=== PATIENT | female | born 1960 | race American Indian/Alaskan Native ===

== ENCOUNTER 2018-04-28 08:50 | Emergency (ER) | payer MEDICARE ==
[2018-04-28] MEDS ORDERED: BENADRYL PO ONE (10:38)
[2018-04-28] MEDS ORDERED: FUL-GLO OP ONE (10:39)
[2018-04-28] MEDS ORDERED: TETRACAINE 0.5% OU ONE (10:39)
--- NOTE | 2018-04-28 10:47 | Emergency Department Report ---
HPI - General Chief Complaint: Eye Problems Time Seen by Provider: 04/28/18 10:20 - HPI HPI: 57-year-old female presents to the emergency department from home with complaint of bilateral eye burning, tearing and irritation since taking a shower about one hour ago. She thinks that there may have been some reaction to her shampoo or hair dye chemicals. She also complains of some generalized itching. Patient also says that she is nauseated but also that she has not eaten or drank anything at this morning and that may be the problem. She has a past medical history of hypertension and diabetes. She has not taken anything for her symptoms prior to presentation. ED Past Medical Hx - Past Medical History Previous Medical History?: Yes Hx Hypertension: Yes Hx Diabetes: Yes (type 2) Hx Headaches / Migraines: Yes Hx Psychiatric Treatment: Yes (schizophrenia, bipolar) Additional medical history: medication non-compliance - Surgical History Past Surgical History?: Yes Additional Surgical History: right lumpectomy - Social History Smoking Status: Current Every Day Smoker Substance Use Type: None - Medications Home Medications: Home Medications Medication Instructions Recorded Confirmed Last Taken Type QUEtiapine [SEROquel] 200 mg PO QAM 02/18/15 07/03/15 07/03/15 History QUEtiapine [SEROquel] 200 mg PO QHS 02/18/15 07/03/15 07/03/15 History metFORMIN [Glucophage] 500 mg PO BID 02/18/15 07/03/15 07/03/15 History SUMAtriptan SUCCINATE [Imitrex] 6 mg SQ ONCE PRN #10 vial 06/27/15 07/03/15 Rx Valsartan/Hydrochlorothiazide 1 tab PO QDAY #30 tablet 07/04/15 Unknown Rx [Diovan Hct 160-25 mg] traMADol [Ultram 50 MG tab] 50 mg PO Q8HR PRN #20 tablet 07/04/15 Unknown Rx Tobramycin/Dexameth 0.3-0.1% 1 drops OU Q6H #1 bottle 04/28/18 Unknown Rx [Tobradex] ED Review of Systems ROS: Stated complaint: ALLERGIC REACTION Other details as noted in HPI Comment: All other systems reviewed and negative Constitutional: denies: chills, fever Eyes: eye pain, other (eye redness, tearing) ENT: denies: ear pain, throat pain Respiratory: denies: cough, shortness of breath, wheezing Cardiovascular: denies: chest pain, palpitations Gastrointestinal: nausea. denies: abdominal pain, vomiting Genitourinary: denies: urgency, dysuria, discharge Musculoskeletal: denies: back pain, joint swelling, arthralgia Skin: denies: rash, lesions Neurological: headache. denies: weakness, numbness Physical Exam - Physical Exam Vital Signs: Vital Signs 04/28/18 09:16 Temperature 98.4 F Pulse Rate 80 Respiratory 20 Rate Blood Pressure 166/107 O2 Sat by Pulse 98 Oximetry Physical Exam: GENERAL: The patient is well-developed well-nourished. HENT: Normocephalic. Atraumatic. Patient has moist mucous membranes. EYES: Extraocular motions are intact. Pupils equal reactive to light bilaterally. There is bilateral generalized conjunctivitis. There is some clear tearing. Visual acuity is 20/40 to each individual eye. There is no fluorescein uptake seen on Haider lamp NECK: Supple. Trachea is midline. CHEST/LUNGS: Clear to auscultation. There is no respiratory distress noted. HEART/CARDIOVASCULAR: Regular. There is no tachycardia. There is no murmur. ABDOMEN: Abdomen is soft, nontender. Patient has normal bowel sounds. Obese habitus. SKIN: Skin is warm and dry. NEURO: The patient is awake, alert, and oriented. The patient is cooperative. The patient has no focal neurologic deficits. The patient has normal speech. Normal gait appearance. Cranial nerves II-12 grossly intact. MUSCULOSKELETAL: There is no tenderness or deformity. There is no limitation range of motion. There is no evidence of acute injury. ED Course Vital Signs 04/28/18 09:16 Temperature 98.4 F Pulse Rate 80 Respiratory 20 Rate Blood Pressure 166/107 O2 Sat by Pulse 98 Oximetry ED Medical Decision Making - Medical Decision Making This patient presents with acute bilateral eye redness, tearing and a burning sensation since about one hour prior to presentation. On examination the patient does appear to have bilateral conjunctival injection and some clear tearing. She was given tetracaine and fluorescein staining and there was no signs of any corneal abrasion or fluorescein uptake with the Haider lamp. She was covered with some TobraDex drops. Patient also complained of some generalized itching for which she was given some Benadryl. To triage she may have complained of some dizziness but she had none of these complaints since I have seen her in the emergency department. The patient was seen ambulatory throughout the emergency department and did not appear unstable. I went to reassess the patient and the patient is asking for discharge home. She did not want any further workup but told me that she "feels fine." She was given a referral for ophthalmology check into her eye complaints. She was instructed to return to the emergency Department with any worsening of her symptoms, decreased vision, slurred speech, headache, dizziness, any neurological deficits or with any complaints/distress. - Differential Diagnosis allergic or chemical conjunctivitis, corneal abrasions Critical Care Time: No Critical care attestation.: If time is entered above; I have spent that time in minutes in the direct care of this critically ill patient, excluding procedure time. ED Disposition Clinical Impression: HTN (hypertension) Qualifiers: Hypertension type: essential hypertension Qualified Code(s): I10 - Essential ( primary) hypertension Conjunctivitis Qualifiers: Conjunctivitis type: acute Acute conjunctivitis type: unspecified Laterality: bilateral Qualified Code(s): H10.33 - Unspecified acute conjunctivitis, bilateral Disposition: DC TO HOME OR SELFCARE Is pt being admited?: No Condition: Stable Instructions: Conjunctivitis (ED), Hypertension (ED) Additional Instructions: Please follow up with her primary care physician in the next few days. I have given him a referral for a local business objects developer, Dr. Vargas, to follow up regarding your eye redness and burning. Please return to the emergency department immediately with any worsening of her symptoms, development of any severe headache, dizziness or feeling off balance, chest pain, or with any acute distress. Try and stay away from foods that are high in salt and caffeinated products to help with your blood pressure. Keep a blood pressure log. Prescriptions: Tobramycin/Dexameth 0.3-0.1% [Tobradex] 1 drops OU Q6H #1 bottle Referrals: PRIMARY CAREMD [Primary Care Provider] - ALEJANDRO SULLIVAN MD [Staff Physician] - BA[facility] Time of Disposition: 12:23
[2018-04-28] MEDS ORDERED: TOBRADEX OU ONE (11:38)
[2018-04-28 12:03] VITALS: BP 152/89
== END 2018-04-28 12:32 | disposition home or self-care (01) ==
LOC: ED 08:50
DX: H10.9 Unspecified conjunctivitis (principal); I10 Essential (primary) hypertension; E11.9 Type 2 diabetes mellitus without complications; G43.909 Migraine, unspecified, not intractable, without status migrainosus; F17.200 Nicotine dependence, unspecified, uncomplicated
CPT/HCPCS: 99283

== ENCOUNTER 2019-02-12 11:30 | Emergency (ER) | payer MEDICARE ==
--- NOTE | 2019-02-12 11:49 | Emergency Department Report ---
Blank Doc - Documentation Documentation: This is a 58-year-old female that presents with abdominal pain, HTN, SOB, and constipation. This initial assessment/diagnostic orders/clinical plan/treatment(s) is/are subject to change based on patient's health status, clinical progression and re- assessment by fellow clinical providers in the ED. Further treatment and workup at subsequent clinical providers discretion. Patient/guardians urged not to elope from the ED as their condition may be serious if not clinically assessed and managed. Initial orders include: 1- Patient sent to MAIN ED for further evaluation and treatment 2- labs 3- EKG 4- CXR/ABD xrays
[2019-02-12 12:20] LABS: Basophils % (Auto) 0.5 % (0.0-1.8); Eosinophils # (Auto) 0.1 K/mm3 (0.0-0.4); Eosinophils % (Auto) 1.7 % (0.0-4.3); Hematocrit 37.5 % (30.3-42.9); Hemoglobin 12.5 gm/dl (10.1-14.3); Lymphocytes # (Auto) 2.1 K/mm3 (1.2-5.4); Lymphocytes % (Auto) 24.2 % (13.4-35.0); Mean Corpuscular HGB Conc 33 % (30-34); Mean Corpuscular Volume 92 fl (79-97); Monocytes # (Auto) 0.5 K/mm3 (0.0-0.8); Platelet Count 326 K/mm3 (140-440); Red Blood Count 4.06 M/mm3 (3.65-5.03)
--- NOTE | 2019-02-12 12:33 | Emergency Department Report ---
ED General Adult HPI - General Chief complaint: Dyspnea/Respdistress Stated complaint: SOB/SWOLLEN ABD Time Seen by Provider: 02/12/19 11:48 Source: patient Mode of arrival: Ambulatory Limitations: No Limitations - History of Present Illness Initial comments: Mrs. Langston is a 58-year-old female with history of diabetes mellitus, migraine headaches, hypertension, schizophrenia, bipolar disorder who presents with headache, shortness of breath and constipation. Symptoms began 2 weeks ago. Headache is typical of previous migraine headaches. Mild in severity. Diffuse abdominal pain without any localized discrete area. Shortness of breath nonspecific without change with exertion or inspiration. Recently diagnosed with pneumonia. +tobacco abuse -: Gradual, week(s) (2) Location: head, abdomen Severity scale (0 -10): 5 Quality: aching Consistency: constant Improves with: none Worsens with: none Associated Symptoms: shortness of breath - Related Data Home Medications Medication Instructions Recorded Confirmed Last Taken QUEtiapine [SEROquel] 200 mg PO QAM 02/18/15 07/03/15 07/03/15 QUEtiapine [SEROquel] 200 mg PO QHS 02/18/15 07/03/15 07/03/15 metFORMIN [Glucophage] 500 mg PO BID 02/18/15 07/03/15 07/03/15 Previous Rx's Medication Instructions Recorded Last Taken Type SUMAtriptan SUCCINATE [Imitrex] 6 mg SQ ONCE PRN #10 vial 06/27/15 07/03/15 Rx Valsartan/Hydrochlorothiazide 1 tab PO QDAY #30 tablet 07/04/15 Unknown Rx [Diovan Hct 160-25 mg] traMADol [Ultram 50 MG tab] 50 mg PO Q8HR PRN #20 tablet 07/04/15 Unknown Rx Tobramycin/Dexameth 0.3-0.1% 1 drops OU Q6H #1 bottle 04/28/18 Unknown Rx [Tobradex] ALBUTEROL Inhaler (OR & NICU) 2 puff IH QID PRN #1 device 02/12/19 Unknown Rx [ProAir HFA Inhaler] Magnesium Citrate [Citrate of 300 ml PO ONCE #1 bottle 02/12/19 Unknown Rx Magnesia] Prednisone [predniSONE 10 mg 10 mg PO .TAPER #1 tab.ds.pk 02/12/19 Unknown Rx (6-Day Pack, 21 Tabs)] Allergies Allergy/AdvReac Type Severity Reaction Status Date / Time No Known Allergies Allergy Verified 06/27/15 12:10 ED Review of Systems ROS: Stated complaint: SOB/SWOLLEN ABD Other details as noted in HPI Comment: All other systems reviewed and negative Constitutional: denies: fever, malaise Respiratory: shortness of breath Gastrointestinal: abdominal pain Neurological: headache ED Past Medical Hx - Past Medical History Previous Medical History?: Yes Hx Hypertension: Yes Hx Diabetes: Yes (type 2) Hx Headaches / Migraines: Yes Hx Psychiatric Treatment: Yes (schizophrenia, bipolar) Additional medical history: medication non-compliance - Surgical History Past Surgical History?: Yes Additional Surgical History: right lumpectomy - Social History Smoking Status: Current Every Day Smoker Substance Use Type: None - Medications Home Medications: Home Medications Medication Instructions Recorded Confirmed Last Taken Type QUEtiapine [SEROquel] 200 mg PO QAM 02/18/15 07/03/15 07/03/15 History QUEtiapine [SEROquel] 200 mg PO QHS 02/18/15 07/03/15 07/03/15 History metFORMIN [Glucophage] 500 mg PO BID 02/18/15 07/03/15 07/03/15 History SUMAtriptan SUCCINATE [Imitrex] 6 mg SQ ONCE PRN #10 vial 06/27/15 07/03/15 07/03/15 Rx Valsartan/Hydrochlorothiazide 1 tab PO QDAY #30 tablet 07/04/15 Unknown Rx [Diovan Hct 160-25 mg] traMADol [Ultram 50 MG tab] 50 mg PO Q8HR PRN #20 tablet 07/04/15 Unknown Rx Tobramycin/Dexameth 0.3-0.1% 1 drops OU Q6H #1 bottle 04/28/18 Unknown Rx [Tobradex] ALBUTEROL Inhaler (OR & NICU) 2 puff IH QID PRN #1 device 02/12/19 Unknown Rx [ProAir HFA Inhaler] Magnesium Citrate [Citrate of 300 ml PO ONCE #1 bottle 02/12/19 Unknown Rx Magnesia] Prednisone [predniSONE 10 mg 10 mg PO .TAPER #1 tab.ds.pk 02/12/19 Unknown Rx (6-Day Pack, 21 Tabs)] ED Physical Exam - General Limitations: No Limitations General appearance: alert, in no apparent distress - Head Head exam: Present: atraumatic, normocephalic - Eye Eye exam: Present: normal appearance - ENT ENT exam: Present: mucous membranes moist - Neck Neck exam: Present: normal inspection, full ROM. Absent: tenderness, meningismus - Respiratory Respiratory exam: Present: normal lung sounds bilaterally. Absent: respiratory distress, wheezes, rales, rhonchi - Cardiovascular Cardiovascular Exam: Present: regular rate, normal rhythm, normal heart sounds. Absent: systolic murmur, diastolic murmur, rubs, gallop - GI/Abdominal GI/Abdominal exam: Present: soft, normal bowel sounds. Absent: distended, tenderness, guarding, rebound - Extremities Exam Extremities exam: Present: normal inspection - Back Exam Back exam: Present: normal inspection - Neurological Exam Neurological exam: Present: alert, oriented X3 - Psychiatric Psychiatric exam: Present: normal affect, normal mood - Skin Skin exam: Present: warm, dry, intact, normal color. Absent: rash ED Course Vital Signs 02/12/19 02/12/19 02/12/19 11:49 12:53 12:57 Temperature 97.7 F 98.6 F Pulse Rate 68 67 Pulse Rate [ Anterior Bilateral] Respiratory 16 16 16 Rate Respiratory Rate [Anterior Bilateral] Blood Pressure 187/95 Blood Pressure 171/81 [Left] O2 Sat by Pulse 97 98 98 Oximetry 02/12/19 13:19 Temperature Pulse Rate Pulse Rate [ 64 Anterior Bilateral] Respiratory Rate Respiratory 10 L Rate [Anterior Bilateral] Blood Pressure Blood Pressure [Left] O2 Sat by Pulse Oximetry ED Medical Decision Making - Lab Data Result diagrams: 02/12/19 11:58 02/12/19 11:58 - Radiology Data Radiology results: report reviewed Chest x-ray KUB: No acute process according to radiology report no PNA - Medical Decision Making 1. Migraine headache typical for patient given medication here in the ED 2. Dyspnea without indication of PE pneumonia or congestive heart failure. Unclear etiology. Does not appear to be an emergent cause according to today's presentation. possible acute or chronic bronchitis, rx: albuterol MDI, prednisone 3. Constipation rx: magnesium citrate Critical care attestation.: If time is entered above; I have spent that time in minutes in the direct care of this critically ill patient, excluding procedure time. ED Disposition Clinical Impression: Migraine headache, Constipation, Dyspnea, Acute bronchitis Disposition: - TO HOME OR SELFCARE Is pt being admited?: No Does the pt Need Aspirin: No Condition: Stable Instructions: Constipation (ED), Acute Bronchitis (ED) Prescriptions: Magnesium Citrate [Citrate of Magnesia] 300 ml PO ONCE #1 bottle Prednisone [predniSONE 10 mg (6-Day Pack, 21 Tabs)] 10 mg PO .TAPER #1 tab.ds.pk ALBUTEROL Inhaler (OR & NICU) [ProAir HFA Inhaler] 2 puff IH QID PRN #1 device PRN Reason: Shortness Of Breath Referrals: [facility] [Outside] - 3-5 Days
[2019-02-12 12:34] LABS: INR 1.02 (0.87-1.13)
[2019-02-12 12:35] LABS: Partial Thromboplastin Time 30.5 Sec. (24.2-36.6)
[2019-02-12 12:44] LABS: Alanine Aminotransferase 20 units/L (7-56); Albumin 3.3 g/dL (3.9-5); BUN/Creatinine Ratio 25; Blood Urea Nitrogen 15 mg/dL (7-17); Calcium 8.7 mg/dL (8.4-10.2); Hemolysis Index 4
--- NOTE | 2019-02-12 12:53 | XRay Report ---
Abdominal series with PA chest INDICATION / CLINICAL INFORMATION: sob/abdominal pain. COMPARISON: None available. FINDINGS: CHEST X-RAY: There is mild cardiomegaly. There is no acute pulmonary parenchymal or pleural abnormali ty. TUBES / LINES: None. BOWEL GAS PATTERN: No significant abnormality. FREE AIR / EXTRALUMINAL GAS: None identified on this supine exam (which is not sensitive for free air ). ADDITIONAL FINDINGS: No significant additional findings. IMPRESSION: 1. No acute findings. 2. Mild cardiomegaly. Signer Name: Jethro Haas MD Signed: 02/12/2019 11:48 AM Workstation Name: [id number]
[2019-02-12] MEDS ORDERED: DUONEB *Not for PRN Use IH ONE (12:55)
[2019-02-12] MEDS ORDERED: DELTASONE PO ONE (12:55)
[2019-02-12] MEDS ORDERED: DIOVAN PO ONE (13:31)
[2019-02-12] MEDS ORDERED: HCTZ PO ONE (13:31)
[2019-02-12] MEDS ORDERED: CEPHULAC PO ONE (14:19)
[2019-02-12 14:44] VITALS: BP 149/97
[2019-02-12 14:44] LABS: Bacteria,Urine 1+ /HPF (Negative); Bilirubin,Urine NEG (Negative); Blood,Urine SM (Negative); Mucus,Urine 2+ /HPF; Urobilinogen,Urine < 2.0 mg/dL (<2.0)
[2019-02-12 14:45] LABS: Color,Urine Yellow (Yellow)
== END 2019-02-12 14:44 | disposition home or self-care (01) ==
LOC: ED 11:30
DX: G43.909 Migraine, unspecified, not intractable, without status migrainosus (principal); K59.00 Constipation, unspecified; J20.9 Acute bronchitis, unspecified; I10 Essential (primary) hypertension; E11.9 Type 2 diabetes mellitus without complications; F20.9 Schizophrenia, unspecified; F31.9 Bipolar disorder, unspecified; F17.200 Nicotine dependence, unspecified, uncomplicated; Z79.899 Other long term (current) drug therapy
CPT/HCPCS: 36415; 74022; 80053; 81001; 84484; 85025; 85610; 85730; 94640; 99284; J7512

== ENCOUNTER 2019-02-15 12:15 | Inpatient (IN) | payer MEDICARE ==
--- NOTE | 2019-02-15 13:10 | Emergency Department Report ---
Blank Doc - Documentation Documentation: Patient reports headache chest pain abdomonnal anderson. Patient here with same c omplaints 2 days ago. Had labs , EKG ,and ct scan of abdominal/chest BM 2 days ago. Has a PCP in [place]. Reports copd on meds, sill smoking H?o HTN BP 209/109 H/O sleep apnea not on cpap EKG, labs Patient falling asleep during questioning Sent from [facility] for evaluation
[2019-02-15] MEDS ORDERED: PEPCID IV ONE (13:30)
[2019-02-15] MEDS ORDERED: CARAFATE PO ONE (13:30)
[2019-02-15] MEDS ORDERED: TYLENOL PO ONE (13:30)
--- NOTE | 2019-02-15 13:32 | Emergency Department Report ---
ED General Adult HPI - General Chief complaint: High BP Stated complaint: HIGH BLOOD PRESSURE Time Seen by Provider: 02/15/19 13:02 Source: patient Mode of arrival: Ambulatory Limitations: No Limitations - Related Data Home Medications Medication Instructions Recorded Confirmed Last Taken QUEtiapine [SEROquel] 200 mg PO QAM 02/18/15 07/03/15 07/03/15 QUEtiapine [SEROquel] 200 mg PO QHS 02/18/15 07/03/15 07/03/15 metFORMIN [Glucophage] 500 mg PO BID 02/18/15 07/03/15 07/03/15 Previous Rx's Medication Instructions Recorded Last Taken Type SUMAtriptan SUCCINATE [Imitrex] 6 mg SQ ONCE PRN #10 vial 06/27/15 07/03/15 Rx Valsartan/Hydrochlorothiazide 1 tab PO QDAY #30 tablet 07/04/15 Unknown Rx [Diovan Hct 160-25 mg] traMADol [Ultram 50 MG tab] 50 mg PO Q8HR PRN #20 tablet 07/04/15 Unknown Rx Tobramycin/Dexameth 0.3-0.1% 1 drops OU Q6H #1 bottle 04/28/18 Unknown Rx [Tobradex] ALBUTEROL Inhaler (OR & NICU) 2 puff IH QID PRN #1 device 02/12/19 Unknown Rx [ProAir HFA Inhaler] Magnesium Citrate [Citrate of 300 ml PO ONCE #1 bottle 02/12/19 Unknown Rx Magnesia] Prednisone [predniSONE 10 mg 10 mg PO .TAPER #1 tab.ds.pk 02/12/19 Unknown Rx (6-Day Pack, 21 Tabs)] Allergies Allergy/AdvReac Type Severity Reaction Status Date / Time No Known Allergies Allergy Verified 02/15/19 12:16 ED Review of Systems ROS: Stated complaint: HIGH BLOOD PRESSURE Other details as noted in HPI ED Past Medical Hx - Past Medical History Hx Hypertension: Yes Hx Diabetes: Yes (type 2) Hx Headaches / Migraines: Yes Hx Psychiatric Treatment: Yes (schizophrenia, bipolar) Additional medical history: medication non-compliance - Surgical History Additional Surgical History: right lumpectomy - Social History Smoking Status: Current Every Day Smoker Substance Use Type: None - Medications Home Medications: Home Medications Medication Instructions Recorded Confirmed Last Taken Type QUEtiapine [SEROquel] 200 mg PO QAM 02/18/15 07/03/15 07/03/15 History QUEtiapine [SEROquel] 200 mg PO QHS 02/18/15 07/03/15 07/03/15 History metFORMIN [Glucophage] 500 mg PO BID 02/18/15 07/03/15 07/03/15 History SUMAtriptan SUCCINATE [Imitrex] 6 mg SQ ONCE PRN #10 vial 06/27/15 07/03/15 07/03/15 Rx Valsartan/Hydrochlorothiazide 1 tab PO QDAY #30 tablet 07/04/15 Unknown Rx [Diovan Hct 160-25 mg] traMADol [Ultram 50 MG tab] 50 mg PO Q8HR PRN #20 tablet 07/04/15 Unknown Rx Tobramycin/Dexameth 0.3-0.1% 1 drops OU Q6H #1 bottle 04/28/18 Unknown Rx [Tobradex] ALBUTEROL Inhaler (OR & NICU) 2 puff IH QID PRN #1 device 02/12/19 Unknown Rx [ProAir HFA Inhaler] Magnesium Citrate [Citrate of 300 ml PO ONCE #1 bottle 02/12/19 Unknown Rx Magnesia] Prednisone [predniSONE 10 mg 10 mg PO .TAPER #1 tab.ds.pk 02/12/19 Unknown Rx (6-Day Pack, 21 Tabs)] ED Physical Exam - General Limitations: No Limitations ED Course Vital Signs 02/15/19 13:07 Temperature 97.6 F Pulse Rate 72 Respiratory 22 Rate Blood Pressure 209/107 O2 Sat by Pulse 98 Oximetry Critical care attestation.: If time is entered above; I have spent that time in minutes in the direct care of this critically ill patient, excluding procedure time. ED Disposition Condition: Stable
--- NOTE | 2019-02-15 13:47 | Emergency Department Report ---
ED Chest Pain HPI - General Chief Complaint: High BP Stated Complaint: HIGH BLOOD PRESSURE Time Seen by Provider: 02/15/19 13:02 Source: patient, RN notes reviewed, old records reviewed Mode of arrival: Ambulatory Limitations: No Limitations - History of Present Illness Initial Comments: This is a 58-year-old female. This patient is not known to this provider previously. Her past medical history includes morbid obesity, hypertension, diabetes. Patient may have a history of undiagnosed sleep apnea, patient reports that her indicates that she snores quite a bit at night. She also endorses daytime sleepiness. She endorses sensation that sleep does not feel refreshing. Was recently initiated on antihypertensive therapy. Patient presents to the ER today with multiple complaints. Her first complaint is nontraumatic subxiphoid chest pain. This pain is aching and throbbing, constant since last night, and radiates to the back. There is no vomiting or diaphoresis. No recent aspirin consumption. There is shortness of breath. This is chronic. There may be an exertional component, the patient endorses chronic shortness of breath. The patient denies DVT, pulmonary embolism risk factors. Secondary complaint is lower abdominal pain. It has been present for a few days. It is mostly suprapubic. It does not radiate anywhere. It does not have exacerbating or relieving factors. No irritative or obstructive urinary symptoms. Patient seen in this department a few days ago for similar symptoms, had unremarkable laboratory studies, an unremarkable x-ray of the chest, abdomen, pelvis. MD Complaint: chest pain, other -: Gradual, hour(s), days(s) Onset: during rest Pain Location: epigastric Pain Radiation: none Severity: moderate Quality: aching Consistency: constant Improves With: nothing Worsens With: nothing re: dyspnea Aspirin use within the Past 7 Days: (0) No - Related Data On Oral Contraceptives: No Home Medications Medication Instructions Recorded Confirmed Last Taken metFORMIN [Glucophage] 500 mg PO BID 02/18/15 02/15/19 07/03/15 ARIPiprazole [Abilify] 15 mg PO DAILY 02/15/19 02/15/19 Unknown Propranolol [Inderal] 10 mg PO TID 02/15/19 02/15/19 Unknown Valsartan [Diovan] 160 mg PO BID 02/15/19 02/15/19 Unknown carBAMazepine [Carbamazepine] 200 mg PO BID 02/15/19 02/15/19 Unknown Allergies Allergy/AdvReac Type Severity Reaction Status Date / Time No Known Allergies Allergy Verified 02/15/19 12:16 Heart Score - HEART Score History: Moderately suspicious EKG: Non-specific Age: 45-65 Risk factors: > 3 risk factors or hx of atherosclerotic disease Troponin: < normal limit HEART Score: 5 - Critical Actions Critical Actions: 4-6 pts:12-16.6% risk of adverse cardiac event. Should be admitted ED Review of Systems ROS: Stated complaint: HIGH BLOOD PRESSURE Other details as noted in HPI Constitutional: malaise. denies: fever Eyes: denies: eye discharge ENT: denies: epistaxis Respiratory: shortness of breath Cardiovascular: chest pain Gastrointestinal: abdominal pain, constipation Genitourinary: denies: dysuria Musculoskeletal: arthralgia Skin: denies: lesions Neurological: weakness Psychiatric: anxiety ED Past Medical Hx - Past Medical History Hx Hypertension: Yes Hx Diabetes: Yes (type 2) Hx Headaches / Migraines: Yes Hx Psychiatric Treatment: Yes (schizophrenia, bipolar) Additional medical history: medication non-compliance - Surgical History Additional Surgical History: right lumpectomy - Social History Smoking Status: Current Every Day Smoker Substance Use Type: None - Medications Home Medications: Home Medications Medication Instructions Recorded Confirmed Last Taken Type metFORMIN [Glucophage] 500 mg PO BID 02/18/15 02/15/19 07/03/15 History ARIPiprazole [Abilify] 15 mg PO DAILY 02/15/19 02/15/19 Unknown History Propranolol [Inderal] 10 mg PO TID 02/15/19 02/15/19 Unknown History Valsartan [Diovan] 160 mg PO BID 02/15/19 02/15/19 Unknown History carBAMazepine [Carbamazepine] 200 mg PO BID 02/15/19 02/15/19 Unknown History ED Physical Exam - General Limitations: No Limitations General appearance: alert, anxious, obese - Head Head exam: Present: atraumatic, normocephalic - Eye Eye exam: Present: normal appearance, EOMI. Absent: nystagmus - ENT ENT exam: Present: normal exam, normal orophraynx, mucous membranes moist, normal external ear exam - Neck Neck exam: Present: normal inspection, full ROM. Absent: tenderness, meningismus - Respiratory Respiratory exam: Present: normal lung sounds bilaterally, rales (focal rales noted in lowe lung salmon). Absent: respiratory distress - Cardiovascular Cardiovascular Exam: Present: regular rate, normal rhythm, normal heart sounds. Absent: bradycardia, tachycardia, irregular rhythm, systolic murmur, diastolic murmur, rubs, gallop - GI/Abdominal GI/Abdominal exam: Present: soft. Absent: distended, tenderness (there is minimal suprapubic tenderness. There is no rebound, guarding or peritoneal signs.), guarding, rebound, rigid, pulsatile mass - External exam: Present: normal external exam, other (chaperoned by nurse Blanche Santamaria) - Extremities Exam Extremities exam: Present: normal inspection, full ROM, pedal edema, other (2+ pulses noted in the bilateral upper, lower extremities. Compartments soft. No long bony tenderness. The pelvis is stable.). Absent: calf tenderness - Back Exam Back exam: Present: normal inspection, full ROM. Absent: tenderness, CVA tenderness (R), CVA tenderness (L), paraspinal tenderness, vertebral tenderness - Neurological Exam Neurological exam: Present: alert, oriented X3, other (Extraocular movements intact. Tongue midline. No facial droop. Facial sensation intact to light touch in the V1, V2, V3 distribution bilaterally. 5 and 5 strength in 4 extremities.. Sensation is intact to light touch in 4 extremities.). Absent: motor sensory deficit - Psychiatric Psychiatric exam: Present: anxious - Skin Skin exam: Present: warm, dry, intact, normal color. Absent: rash ED Course Vital Signs 02/15/19 02/15/19 02/15/19 13:07 15:28 15:29 Temperature 97.6 F Pulse Rate 72 79 79 Respiratory 22 16 Rate Blood Pressure 209/107 188/115 Blood Pressure 188/115 [Left] O2 Sat by Pulse 98 96 Oximetry - Reevaluation(s) Reevaluation #1: 02/15/19 13:45 Differential diagnosis, including but not limited to: GERD, gastritis, hiatal hernia, pneumonia, acute coronary syndrome, reflux, sleep apnea, constipation, obstruction, urinary tract infection Assessment and plan: 58-year-old female found to be hypertensive, also anxious, no pulmonary embolism or DVT risk factors, low risk by well's criteria, aortic disease unlikely, pulses equal in the upper and lower extremities bilaterally, x-ray of the chest unremarkable a few days ago, however, given morbid obesity, diabetes, hypertension, patient moderate risk for major adverse cardiac event as per the heart risk stratification tool. We will treat her symptoms. Blood pressure currently 170/80's. Shortness of breath is appreciated, patient endorses some orthopnea, has 3-4 cm of JVD, and minimal lower extremity edema, suspect right-sided heart dysfunction, likely secondary to pulmonary hypertension, and presumed undiagnosed obstructive sleep apnea. Explained to patient that she would need to lose weight, and improved diet and lifestyle. Screening laboratory studies pending. We will obtain noncontrast CT scan of the abdomen and pelvis, do not suspect acute etiology or pathology in the patient's abdomen/pelvis at this time. Pain medication will be given. 02/15/19 14:56 Reevaluation #2: 02/15/19 14:54 Laboratory studies show elevated BNP, in combination with JVD, shortness of breath, presumed undiagnosed obstructive sleep apnea, prominent pulmonary artery on x-ray of the chest, all suggestive of right-sided cardiac dysfunction, right-sided heart failure. CT scan of the chest ordered, additional medications ordered, case presented to Hospital physician, Dr. Neil Merchant, who has accepted the patient to the medical service. Reevaluation #3: 02/15/19 15:42 CT scan of the abdomen and pelvis is negative for acute disease. Dr Neil Merchant agrees to follow-up on CT scan of the chest Reevaluation #4: 02/15/19 15:42 Urinalysis reviewed and appreciated, likely asymptomatic bacteriuria. - EJ/Peripheral Line Neck R Time Out Performed: Yes Indications: nurses unable to establis Skin Cleansed in Sterile Fashion: Yes Size: 20 Dressing Placed: Tegaderm Patient Tolerated Procedure: well JM score - Jm Score Age > 65: (0) No Aspirin use within the Past 7 Days: (0) No 3 or more CAD Risk Factors: (1) Yes 2 or more Angina events in past 24 hrs: (0) No Known CAD with more than 50% Stenosis: (0) No Elevated Cardiac Markers: (0) No ST Deviation Greater than 0.5mm: (0) No JM Score: 1 ED Medical Decision Making - Lab Data Result diagrams: 02/15/19 13:34 02/15/19 13:34 Vital Signs 02/15/19 13:07 Temperature 97.6 F Pulse Rate 72 Respiratory 22 Rate Blood Pressure 209/107 O2 Sat by Pulse 98 Oximetry Vital Signs 02/15/19 13:07 Temperature 97.6 F Pulse Rate 72 Respiratory 22 Rate Blood Pressure 209/107 O2 Sat by Pulse 98 Oximetry Lab Results 02/15/19 02/15/19 02/15/19 Range/Units 13:34 13:34 13:34 WBC 10.9 (4.5-11.0) K/mm3 RBC 4.15 (3.65-5.03) M/mm3 Hgb 12.6 (10.1-14.3) gm/dl Hct 38.9 (30.3-42.9) % MCV 94 (79-97) fl MCH 30 (28-32) pg MCHC 32 (30-34) % RDW 15.1 (13.2-15.2) % Plt Count 350 (140-440) K/mm3 D-Dimer 254.95 H (0-234) ng/mlDDU Sodium 137 (137-145) mmol/L Potassium 4.3 (3.6-5.0) mmol/L Chloride 99.1 (98-107) mmol/L Carbon Dioxide 27 (22-30) mmol/L Anion Gap 15 mmol/L BUN 18 H (7-17) mg/dL Creatinine 0.6 L (0.7-1.2) mg/dL Estimated GFR > 60 ml/min BUN/Creatinine Ratio 30 % Glucose 278 H (65-100) mg/dL Calcium 9.1 (8.4-10.2) mg/dL Magnesium 1.90 (1.7-2.3) mg/dL Total Creatine Kinase 162 H (30-135) units/L Troponin T (0.00-0.029) ng/mL NT-Pro-B Natriuret Pep (0-900) pg/mL 02/15/19 02/15/19 Range/Units 13:34 13:34 WBC (4.5-11.0) K/mm3 RBC (3.65-5.03) M/mm3 Hgb (10.1-14.3) gm/dl Hct (30.3-42.9) % MCV (79-97) fl MCH (28-32) pg MCHC (30-34) % RDW (13.2-15.2) % Plt Count (140-440) K/mm3 D-Dimer (0-234) ng/mlDDU Sodium (137-145) mmol/L Potassium (3.6-5.0) mmol/L Chloride (98-107) mmol/L Carbon Dioxide (22-30) mmol/L Anion Gap mmol/L BUN (7-17) mg/dL Creatinine (0.7-1.2) mg/dL Estimated GFR ml/min BUN/Creatinine Ratio % Glucose (65-100) mg/dL Calcium (8.4-10.2) mg/dL Magnesium (1.7-2.3) mg/dL Total Creatine Kinase (30-135) units/L Troponin T < 0.010 (0.00-0.029) ng/mL NT-Pro-B Natriuret Pep 1883 H (0-900) pg/mL - EKG Data -: EKG Interpreted by Or EKG shows normal: sinus rhythm Rate: normal - EKG Data When compared to previous EKG there are: no significant change 02/15/19 13:47 This is a sinus rhythm, 70 bpm, left axis deviation, left anterior fascicular block, incomplete right bundle branch block, poor R-wave progression, this is an abnormal EKG, the EKG is not consistent with ST elevation myocardial infarct ion, appears to be grossly unchanged from prior EKG from 07/11/2015. - Radiology Data Radiology results: pending, report reviewed, image reviewed Print Report Referring Physician: LAKIA NICHOLE Patient Name: MADELINE MAY Date of : 1960 Sex: Female Report Date: 2019-02-12 Report Status: Finalized Findings [facility] [address] [place] [address] XRay Report Signed Patient: MADELINE MAY MR#: [id number] : 1960 Acct:[id number] Age/Sex: 58 / F ADM Date: 02/12/19 Loc: ED Attending Dr: Ordering Physician: LAKIA NICHOLE NP Date of Service: 02/12/19 Procedure(s): XR abd series w cxr 1V Accession Number(s): [id number] cc: LAKIA NICHOLE NP Fluoro Time In Minutes: Abdominal series with PA chest INDICATION / CLINICAL INFORMATION: sob/abdominal pain. COMPARISON: None available. FINDINGS: CHEST X-RAY: There is mild cardiomegaly. There is no acute pulmonary parenchymal or pleural abnormality. TUBES / LINES: None. BOWEL GAS PATTERN: No significant abnormality. FREE AIR / EXTRALUMINAL GAS: None identified on this supine exam (which is not sensitive for free air). ADDITIONAL FINDINGS: No significant additional findings. IMPRESSION: 1. No acute findings. 2. Mild cardiomegaly. Signer Name: Jethro Haas MD Signed: 02/12/2019 11:48 AM Workstation Name: [id number] Transcribed By: REF Dictated By: NHUNG LOPEZ MD Electronically Authenticated By: NHUNG LOPEZ MD Signed Date/Time: 02/12/19 1148 DD/ 1148 Print Report Referring Physician: JOEL LINARES Patient Name: MADELINE MAY Date of : 1960 Sex: Female Report Date: 2019-02-15 Report Status: Finalized Findings [facility] [address] [place] [address] XRay Report Signed Patient: MADEILNE MAY MR#: [id number] : 1960 Acct:[id number] Age/Sex: 58 / F ADM Date: 02/15/19 Loc: ED Attending Dr: Ordering Physician: JOEL LINARES MD Date of Service: 02/15/19 Procedure(s): XR chest routine 2V Accession Number(s): [id number] cc: JOEL LINARES MD Fluoro Time In Minutes: PA AND LATERAL CXR HISTORY: Chest pain for 2 weeks. COMPARISON: 02/12/2019 FINDINGS: Cardiomediastinal silhouette: Upper limits of normal. Normal mediastinal contours. Aortic tortuosity. Lungs: Normal expansion. Normal lung aeration. No pleural effusions. No pneumothorax. Pulmonary vascularity: Normal except for prominence of the right pulmonary artery and hilum. Support hardware: None. Additional findings: None. IMPRESSION: A prominent right hilum/pulmonary artery. Consider CTA chest to evaluate the pulmonary arteries. No CHF or pneumonia. Signer Name: Nhung Lopez MD Signed: 02/15/2019 2:00 PM Workstation Name: [id number] Transcribed By: REF Dictated By: NHUNG LOPEZ MD Electronically Authenticated By: NHUNG LOPEZ MD Signed Date/Time: 02/15/19 1400 Critical care attestation.: If time is entered above; I have spent that time in minutes in the direct care of this critically ill patient, excluding procedure time. ED Disposition Clinical Impression: Acute chest pain, Hypertensive urgency Right-sided heart failure Qualifiers: Heart failure chronicity: unspecified Qualified Code(s): I50.810 - Right heart failure, unspecified Disposition: DC-09 OP ADMIT IP TO THIS HOSP Is pt being admited?: Yes Does the pt Need Aspirin: Yes Condition: Stable Instructions: Chest Pain (ED) Referrals: AJAY CASTAÑEDA MD [Primary Care Provider] - 3-5 Days
[2019-02-15 13:48] LABS: Hematocrit 38.9 % (30.3-42.9); Hemoglobin 12.6 gm/dl (10.1-14.3); Mean Corpuscular HGB Conc 32 % (30-34); Mean Corpuscular Volume 94 fl (79-97); Platelet Count 350 K/mm3 (140-440); Red Blood Count 4.15 M/mm3 (3.65-5.03); Red Cell Distribution Width 15.1 % (13.2-15.2)
--- NOTE | 2019-02-15 14:05 | XRay Report ---
PA AND LATERAL CXR HISTORY: Chest pain for 2 weeks. COMPARISON: 02/12/2019 FINDINGS: Cardiomediastinal silhouette: Upper limits of normal. Normal mediastinal contours. Aortic tortuosity . Lungs: Normal expansion. Normal lung aeration. No pleural effusions. No pneumothorax. Pulmonary vascularity: Normal except for prominence of the right pulmonary artery and hilum. Support hardware: None. Additional findings: None. IMPRESSION: A prominent right hilum/pulmonary artery. Consider CTA chest to evaluate the pulmonary arteries. No C HF or pneumonia. Signer Name: Yemi Lopez MD Signed: 02/15/2019 2:00 PM Workstation Name: [id number]
[2019-02-15 14:09] LABS: BUN/Creatinine Ratio 30; Blood Urea Nitrogen 18 mg/dL (7-17); Calcium 9.1 mg/dL (8.4-10.2); Hemolysis Index 7
[2019-02-15] MEDS ORDERED: APRESOLINE IV ONE (14:51)
[2019-02-15] MEDS ORDERED: LASIX IV ONE (14:51)
[2019-02-15] MEDS ORDERED: NITROSTAT SL PRN (14:55)
[2019-02-15] MEDS ORDERED: BABY ASPIRIN PO ONE (14:56)
--- NOTE | 2019-02-15 15:01 | Cat Scan Report ---
CT ABDOMEN AND PELVIS WITHOUT CONTRAST HISTORY: Lower abdominal pain COMPARISON: CT of the abdomen on 07/03/2015. TECHNIQUE: Routine abdominal and pelvic CT exam performed without contrast. Lack of intravenous cont rast limits evaluation of the vascular and solid organs.. All CT scans at this location are performed using CT dose reduction for ALARA by means of automated exposure control. FINDINGS: CT ABDOMEN: Lung Bases: No significant abnormality. Liver: No significant abnormality. Biliary: No significant abnormality. Spleen: No significant abnormality. Unenlarged. Pancreas: No significant abnormality. Adrenals: There is a stable approximately 3 cm right adrenal adenoma, not requiring dedicated follow- up. Kidneys: No significant abnormality. Lymphatics: No lymphadenopathy. Vasculature: Atherosclerotic but nonaneurysmal abdominal aorta. Bowel/Peritoneum: Nonobstructive bowel. Sigmoid diverticulosis without mesocolonic fat stranding. No free air. No free fluid. Normal appendix. CT PELVIC: : No significant abnormality. Lymphatics: No lymphadenopathy. Osseous Structures: No aggressive appearing osseous lesions. Additional Findings: None IMPRESSION: 1. No acute findings or adverse change from the previous CT on 07/03/2015. Signer Name: Jethro Haas MD Signed: 02/15/2019 2:56 PM Workstation Name: [id number]
[2019-02-15 15:03] LABS: Bacteria,Urine 1+ /HPF (Negative); Bilirubin,Urine NEG (Negative); Blood,Urine MOD (Negative); Color,Urine Straw (Yellow); Mucus,Urine FEW /HPF; Urobilinogen,Urine < 2.0 mg/dL (<2.0)
--- NOTE | 2019-02-15 20:22 | History and Physical Report ---
History of Present Illness Date of examination: 02/15/19 History of present illness: This is a 58-year-old female. This patient is not known to this provider previously. Her past medical history includes morbid obesity, hypertension, diabetes. Patient may have a history of undiagnosed sleep apnea, patient reports that her indicates that she snores quite a bit at night. She also endorses daytime sleepiness. She endorses sensation that sleep does not feel refreshing. Was recently initiated on antihypertensive therapy. Patient presents to the ER today with multiple complaints. Her first complaint is nontraumatic subxiphoid chest pain. This pain is aching and throbbing, constant since last night, and radiates to the back. There is no vomiting or diaphoresis. No recent aspirin consumption. There is shortness of breath. This is chronic. There may be an exertional component, the patient endorses chronic shortness of breath. The patient denies DVT, pulmonary embolism risk factors. Secondary complaint is lower abdominal pain. It has been present for a few days. It is mostly suprapubic. It does not radiate anywhere. It does not have exacerbating or relieving factors. No irritative or obstructive urinary symptoms. Patient seen in this department a few days ago for similar symptoms, had unremarkable laboratory studies, an unremarkable x-ray of the chest, abdomen, pelvis. MD Complaint: chest pain, other -: Gradual, hour(s), days(s) Onset: during rest Pain Location: epigastric Pain Radiation: none Severity: moderate Quality: aching Consistency: constant Improves With: nothing Worsens With: nothing re: dyspnea Aspirin use within the Past 7 Days: (0) No - Related Data On Oral Contraceptives: No Home Medications Medication Instructions Recorded Confirmed Last Taken metFORMIN [Glucophage] 500 mg PO BID 02/18/15 02/15/19 07/03/15 ARIPiprazole [Abilify] 15 mg PO DAILY 02/15/19 02/15/19 Unknown Propranolol [Inderal] 10 mg PO TID 02/15/19 02/15/19 Unknown Valsartan [Diovan] 160 mg PO BID 02/15/19 02/15/19 Unknown carBAMazepine [Carbamazepine] 200 mg PO BID 02/15/19 02/15/19 Unknown Allergies Allergy/AdvReac Type Severity Reaction Status Date / Time No Known Allergies Allergy Verified 02/15/19 12:16 Heart Score - HEART Score History: Moderately suspicious EKG: Non-specific Age: 45-65 Risk factors: > 3 risk factors or hx of atherosclerotic disease Troponin: < normal limit HEART Score: 5 - Critical Actions Critical Actions: 4-6 pts:12-16.6% risk of adverse cardiac event. Should be admitted ED Review of Systems ROS: Stated complaint: HIGH BLOOD PRESSURE Other details as noted in HPI Constitutional: malaise. denies: fever Eyes: denies: eye discharge ENT: denies: epistaxis Respiratory: shortness of breath Cardiovascular: chest pain Gastrointestinal: abdominal pain, constipation Genitourinary: denies: dysuria Musculoskeletal: arthralgia Skin: denies: lesions Neurological: weakness Psychiatric: anxiety ED Past Medical Hx - Past Medical History Hx Hypertension: Yes Hx Diabetes: Yes (type 2) Hx Headaches / Migraines: Yes Hx Psychiatric Treatment: Yes (schizophrenia, bipolar) Additional medical history: medication non-compliance - Surgical History Additional Surgical History: right lumpectomy - Social History Smoking Status: Current Every Day Smoker Substance Use Type: None - Medications Home Medications: Home Medications Medication Instructions Recorded Confirmed Last Taken Type metFORMIN [Glucophage] 500 mg PO BID 02/18/15 02/15/19 07/03/15 History ARIPiprazole [Abilify] 15 mg PO DAILY 02/15/19 02/15/19 Unknown History Propranolol [Inderal] 10 mg PO TID 02/15/19 02/15/19 Unknown History Valsartan [Diovan] 160 mg PO BID 02/15/19 02/15/19 Unknown History carBAMazepine [Carbamazepine] 200 mg PO BID 02/15/19 02/15/19 Unknown History Medications and Allergies Allergies Allergy/AdvReac Type Severity Reaction Status Date / Time No Known Allergies Allergy Verified 02/15/19 12:16 Home Medications Medication Instructions Recorded Confirmed Last Taken Type metFORMIN [Glucophage] 500 mg PO BID 02/18/15 02/15/19 07/03/15 History ARIPiprazole [Abilify] 15 mg PO DAILY 02/15/19 02/15/19 Unknown History Propranolol [Inderal] 10 mg PO TID 02/15/19 02/15/19 Unknown History Valsartan [Diovan] 160 mg PO BID 02/15/19 02/15/19 Unknown History carBAMazepine [Carbamazepine] 200 mg PO BID 02/15/19 02/15/19 Unknown History Active Meds: Active Medications Nitroglycerin (Nitrostat) 0.4 mg SL .Q5MIN PRN PRN Reason: Chest Pain Exam - Constitutional Vitals: Temp Pulse Resp BP Pulse Ox 98.3 F 73 12 163/94 98 02/15/19 19:10 02/15/19 19:10 02/15/19 19:10 02/15/19 19:10 02/15/19 19:10 Results - Labs CBC & Chem 7: 02/15/19 13:34 02/15/19 13:34 Labs: Laboratory Last Values WBC 10.9 K/mm3 (4.5-11.0) 02/15/19 13:34 RBC 4.15 M/mm3 (3.65-5.03) 02/15/19 13:34 Hgb 12.6 gm/dl (10.1-14.3) 02/15/19 13:34 Hct 38.9 % (30.3-42.9) 02/15/19 13:34 MCV 94 fl (79-97) 02/15/19 13:34 MCH 30 pg (28-32) 02/15/19 13:34 MCHC 32 % (30-34) 02/15/19 13:34 RDW 15.1 % (13.2-15.2) 02/15/19 13:34 Plt Count 350 K/mm3 (140-440) 02/15/19 13:34 254.95 ng/mlDDU (0-234) H 02/15/19 13:34 Sodium 137 mmol/L (137-145) 02/15/19 13:34 Potassium 4.3 mmol/L (3.6-5.0) 02/15/19 13:34 Chloride 99.1 mmol/L (98-107) 02/15/19 13:34 Carbon Dioxide 27 mmol/L (22-30) 02/15/19 13:34 15 mmol/L 02/15/19 13:34 BUN 18 mg/dL (7-17) H 02/15/19 13:34 0.6 mg/dL (0.7-1.2) L 02/15/19 13:34 Estimated GFR > 60 ml/min 02/15/19 13:34 30 % 02/15/19 13:34 Glucose 278 mg/dL (65-100) H 02/15/19 13:34 Calcium 9.1 mg/dL (8.4-10.2) 02/15/19 13:34 Magnesium 1.90 mg/dL (1.7-2.3) 02/15/19 13:34 162 units/L (30-135) H 02/15/19 13:34 < 0.010 ng/mL (0.00-0.029) 02/15/19 15:54 NT-Pro-B Natriuret Pep 1883 pg/mL (0-900) H 02/15/19 13:34 Straw (Yellow) 02/15/19 14:45 Hazy (Clear) 02/15/19 14:45 6.0 (5.0-7.0) 02/15/19 14:45 Ur Specific [place] 1.009 (1.003-1.030) 02/15/19 14:45 30 mg/dl mg/dL (Negative) 02/15/19 14:45 Neg mg/dL (Negative) 02/15/19 14:45 Neg mg/dL (Negative) 02/15/19 14:45 Mod (Negative) 02/15/19 14:45 Neg (Negative) 02/15/19 14:45 Neg (Negative) 02/15/19 14:45 < 2.0 mg/dL (<2.0) 02/15/19 14:45 Ur Leukocyte Esterase Neg (Negative) 02/15/19 14:45 2.0 /HPF (0.0-6.0) 02/15/19 14:45 2.0 /HPF (0.0-6.0) 02/15/19 14:45 U Epithel Cells (Auto) 7.0 /HPF (0-13.0) 02/15/19 14:45 1+ /HPF (Negative) 02/15/19 14:45 Few /HPF 02/15/19 14:45
[2019-02-15] MEDS ORDERED: ZOFRAN IV PRN ×2 (20:24→20:42)
[2019-02-15] MEDS ORDERED: TYLENOL PO PRN ×2 (20:24→20:42)
[2019-02-15] MEDS ORDERED: IBUPROFEN PO PRN (20:24)
[2019-02-15] MEDS ORDERED: SODIUM CHLORIDE FLUSH SYRINGE 10 ML IV PRN ×2 (20:24→20:42)
[2019-02-15] MEDS ORDERED: DILAUDID IV PRN (20:24)
[2019-02-15] MEDS ORDERED: HumaLOG SUB-Q ONE (20:41)
[2019-02-15] MEDS ORDERED: LOVENOX SUB-Q SCH (21:00)
[2019-02-15] MEDS ORDERED: VALSARTAN 160 MG PO SCH (22:00)
[2019-02-15] MEDS ORDERED: SODIUM CHLORIDE FLUSH SYRINGE 10 ML IV SCH (22:00)
[2019-02-15] MEDS: LASIX IV SCH (22:02)
[2019-02-15] MEDS: K-DUR PO SCH (22:02)
[2019-02-15] MEDS: ABILIFY PO SCH (22:02)
[2019-02-15] MEDS ORDERED: K-DUR PO ONE (22:04)
[2019-02-15] MEDS ORDERED: LASIX ONE (22:04)
[2019-02-15] MEDS: COREG PO SCH (22:57)
[2019-02-15] MEDS: DIOVAN PO SCH (22:57)
[2019-02-15] MEDS: PEPCID PO SCH (22:58)
[2019-02-15] MEDS: SODIUM CHLORIDE FLUSH SYRINGE 10 ML IV SCH (23:00)
[2019-02-15] MEDS: GLUCOPHAGE PO SCH (23:00)
[2019-02-16 03:02] LABS: Alanine Aminotransferase 18 units/L (7-56); Albumin 3.2 g/dL (3.9-5); BUN/Creatinine Ratio 27; Blood Urea Nitrogen 19 mg/dL (7-17); Calcium 8.8 mg/dL (8.4-10.2); Hemolysis Index 9
--- NOTE | 2019-02-16 03:31 | Event Note ---
Date: 02/15/19 Htn emergency CP -r/o [place] CHF exacerbation T2DM Bipolar disorder
--- NOTE | 2019-02-16 04:05 | History and Physical Report ---
CHIEF COMPLAINT: 1. High blood pressure. 2. Chest pain. 3. Shortness of breath. HISTORY OF PRESENT ILLNESS: A 58-year-old female with history of hypertension, type 2 diabetes and seizure disorder, comes in for left-sided chest pain, which is aching and throbbing since last night. Also, pain is about 5 on a scale of 1-10, intermittent in nature. The patient also has shortness of breath on minimal exertion. Some orthopnea present. The patient noted that her blood pressures also have been running high. No recent travel. No fever or chills. PAST MEDICAL HISTORY: Significant for hypertension, type 2 diabetes, migraine headaches, bipolar disorder, schizophrenia, medication noncompliance. PAST SURGICAL HISTORY: Right lumpectomy. SOCIAL HISTORY: Current every day smoker. FAMILY HISTORY: Hypertension. CURRENT MEDICATIONS: Valsartan 160 twice a day, Glucophage 500 mg twice a day, Abilify 15 mg once a day, Inderal 10 mg 3 times a day. REVIEW OF SYSTEMS: Significant for left-sided chest pain, especially ____ and retrosternal region. Also, shortness of breath on minimal exertion. Also, high blood pressure. Otherwise, review of systems negative. A 14-point review of systems done. PHYSICAL EXAMINATION: GENERAL: Middle-aged female, obese, cooperative during examination. VITAL SIGNS: Initial blood pressure was 188/115, temperature is 98, pulse is 79, respirations are 16. HEENT: Unremarkable. Pupils equal and reactive. NECK: Supple, no lymphadenopathy, no thyromegaly. LUNGS: Clear to auscultation and percussion. Good air entry. CARDIOVASCULAR: S1, S2 heard. No gallop, no murmur, no rub. Apical impulse in left fifth intercostal space and midclavicular line. ABDOMEN: Soft and benign. No hepatosplenomegaly. No guarding, no rigidity. Hernial orifices are normal. EXTREMITIES: Slight pedal edema present, 2+. Pulses are well felt. CENTRAL NERVOUS SYSTEM: Alert and oriented x 4, nonfocal exam. SKIN: Normal. LABORATORY DATA: CBC is normal. D-dimer is 254.95. Electrolytes are normal. BUN and creatinine 18 and 0.6, glucose is 278. A1c 6.5, total creatine kinase is 162. BNP is 1883. Urinalysis is normal. Diagnostic studies: EKG shows normal sinus rhythm, heart rate of 70 per minute, left atrial enlargement. Also, chest x-ray shows prominent right pulmonary artery. Consider CT of the chest. No CHF or pneumonia. CT of the abdomen, no acute findings, adverse change from the previous CAT scan. ASSESSMENT AND PLAN: 1. Chest pain, rule out myocardial infarction, chest pain protocol. Serial troponins and Lexiscan. 2. Congestive heart failure exacerbation. We will get echocardiogram for ejection fraction. BNP is high in the 1800s. IV Lasix initiated. Cardiology consult requested. Lexiscan in the morning. 3. Hypertension. Valsartan and Coreg initiated. Propranolol was discontinued. To add hydralazine if necessary. 10 mg q.3. hours p.r.n. IV hydralazine given in the Emergency Room. 4. Type 2 diabetes. Continue metformin and coverage. Hemoglobin A1c is 6.5. The patient may need glimepiride or glipizide. We will defer to the primary team. 5. Schizophrenia/bipolar disorder. Continue Abilify. 6. Deep venous thrombosis prophylaxis, Lovenox 40 mg subcutaneous daily and gastrointestinal prophylaxis initiated. JOB# [id number] GRANT/CARMITA STAFFORD
[2019-02-16] MEDS ORDERED: APRESOLINE IV PRN (04:45)
[2019-02-16] MEDS ORDERED: INDERAL PO SCH (08:00)
[2019-02-16] MEDS ORDERED: LEXISCAN IV ONE ×2 (08:06→08:11)
--- NOTE | 2019-02-16 09:53 | Consultation ---
History of Present Illness Consult date: 02/16/19 Consult reason: chest pain, hypertension History of present illness: 58 year old -[place] female presented with chest pain, shortness of breath. Patient admitted for further evaluation either time of my visits patient is chest pain-free. Past History Past Medical History: diabetes, hypertension Past Surgical History: No surgical history Medications and Allergies Allergies Allergy/AdvReac Type Severity Reaction Status Date / Time No Known Allergies Allergy Verified 02/15/19 12:16 Home Medications Medication Instructions Recorded Confirmed Last Taken Type metFORMIN [Glucophage] 500 mg PO BID 02/18/15 02/15/19 07/03/15 History ARIPiprazole [Abilify] 15 mg PO DAILY 02/15/19 02/15/19 Unknown History Propranolol [Inderal] 10 mg PO TID 02/15/19 02/15/19 Unknown History Valsartan [Diovan] 160 mg PO BID 02/15/19 02/15/19 Unknown History carBAMazepine [Carbamazepine] 200 mg PO BID 02/15/19 02/15/19 Unknown History Active Meds: Active Medications Acetaminophen (Tylenol) 650 mg PO Q4H PRN PRN Reason: Pain MILD(1-3)/Fever >100.5/BETANCOURT Aripiprazole (Abilify) 15 mg PO DAILY [facility] Last Admin: 02/15/19 22:02 Dose: 15 mg Documented by: Carbamazepine (Tegretol) 200 mg PO BID [facility] Last Admin: 02/15/19 22:58 Dose: 200 mg Documented by: Carvedilol (Coreg) 12.5 mg PO BID [facility] Last Admin: 02/15/19 22:57 Dose: 12.5 mg Documented by: Enoxaparin Sodium (Lovenox) 40 mg SUB-Q QDAY@2200 [facility] Last Admin: 02/15/19 22:58 Dose: 40 mg Documented by: Famotidine (Pepcid) 20 mg PO BID [facility] Last Admin: 02/15/19 22:58 Dose: 20 mg Documented by: Furosemide (Lasix) 40 mg IV QDAY [facility] Last Admin: 02/15/19 22:02 Dose: 40 mg Documented by: Hydralazine HCl (Apresoline) 10 mg IV Q4HR PRN PRN Reason: Blood Pressure Hydromorphone HCl (Dilaudid) 0.5 mg IV Q3H PRN PRN Reason: Pain , Severe (7-10) Ibuprofen (Ibuprofen) 600 mg PO Q6H PRN PRN Reason: Pain, Mild (1-3) Metformin HCl (Glucophage) 500 mg PO BIDDIAB [facility] Last Admin: 02/15/19 23:00 Dose: Not Given Documented by: Nitroglycerin (Nitrostat) 0.4 mg SL .Q5MIN PRN PRN Reason: Chest Pain Ondansetron HCl (Zofran) 4 mg IV Q8H PRN PRN Reason: Nausea And Vomiting Potassium Chloride (K-Dur) 20 meq PO QDAY [facility] Last Admin: 02/15/19 22:02 Dose: 20 meq Documented by: Sodium Chloride (Sodium Chloride Flush Syringe 10 Ml) 10 ml IV BID [facility] Last Admin: 02/15/19 23:00 Dose: 10 ml Documented by: Sodium Chloride (Sodium Chloride Flush Syringe 10 Ml) 10 ml IV PRN PRN PRN Reason: LINE FLUSH Valsartan (Diovan) 160 mg PO BID [facility] Last Admin: 02/15/19 22:57 Dose: 160 mg Documented by: Review of Systems All systems: negative (chest pains and shortness of breath) Physical Examination Vital Signs Temp Pulse Resp BP Pulse Ox 97.6 F 72 22 209/107 98 02/15/19 13:07 02/15/19 13:07 02/15/19 13:07 02/15/19 13:07 02/15/19 13:07 General appearance: no acute distress, obese HEENT: Positive: PERRL, Mucus Membranes Moist Neck: Positive: neck supple, trachea midline Cardiac: Positive: Reg Rate and Rhythm, S1/S2. Negative: Audible Murmur Lungs: Positive: clear to auscultation, Normal Breath Sounds Neuro: Positive: Grossly Intact Abdomen: Positive: Soft, Active Bowel Sounds. Negative: Tender, Distended Female genitourinary: deferred Skin: Positive: Clear Incision: Cardiac Cath Site Musculoskeletal: No Pain, Normal Range of Motion Extremities: Present: normal. Absent: edema Results 02/15/19 13:34 02/16/19 02:22 Cardiac Enzymes 02/16/19 Range/Units 02:22 AST 10 (5-40) units/L CBC 02/15/19 Range/Units 13:34 WBC 10.9 (4.5-11.0) K/mm3 RBC 4.15 (3.65-5.03) M/mm3 Hgb 12.6 (10.1-14.3) gm/dl Hct 38.9 (30.3-42.9) % Plt Count 350 (140-440) K/mm3 Comprehensive Metabolic Panel 02/15/19 02/16/19 Range/Units 13:34 02:22 Sodium 137 140 (137-145) mmol/L Potassium 4.3 4.2 (3.6-5.0) mmol/L Chloride 99.1 101.8 (98-107) mmol/L Carbon Dioxide 27 29 (22-30) mmol/L BUN 18 H 19 H (7-17) mg/dL Creatinine 0.6 L 0.7 (0.7-1.2) mg/dL Glucose 278 H 181 H (65-100) mg/dL Calcium 9.1 8.8 (8.4-10.2) mg/dL AST 10 (5-40) units/L ALT 18 (7-56) units/L Alkaline Phosphatase 85 (35-129) units/L Total Protein 6.7 (6.3-8.2) g/dL Albumin 3.2 L (3.9-5) g/dL EKG interpretations - Telemetry EKG Rhythm: Sinus Rhythm Assessment and Plan 1. Chest pain 2. Essential hypertension 3. Type 2 diabetes mellitus 4. Obesity 5. Obstructive sleep apnea 6. Schizoaffective disorder bipolar type Plan. Serum troponin levels normal. Chest x-ray shows no acute cardiopulmonary process. Patient to have a stress thallium scan done today.
[2019-02-16] MEDS: LASIX IV SCH (11:01)
[2019-02-16] MEDS: DIOVAN PO SCH (11:05)
[2019-02-16] MEDS: K-DUR PO SCH (11:05)
[2019-02-16] MEDS: GLUCOPHAGE PO SCH ×2 (11:05→17:15)
[2019-02-16] MEDS: ABILIFY PO SCH (11:05)
[2019-02-16] MEDS: COREG PO SCH (11:06)
[2019-02-16] MEDS: PEPCID PO SCH (11:06)
[2019-02-16] MEDS: SODIUM CHLORIDE FLUSH SYRINGE 10 ML IV SCH (11:06)
[2019-02-16 11:07] VITALS: BP 155/91
--- NOTE | 2019-02-16 11:18 | Progress Note ---
Hospitalist Physical - Constitutional Vitals: Temp Pulse Resp BP Pulse Ox 98.5 F 84 20 155/91 92 02/16/19 07:18 02/16/19 11:05 02/16/19 08:58 02/16/19 11:06 02/16/19 04:36 General appearance: Present: no acute distress, obese Results - Labs CBC & Chem 7: 02/15/19 13:34 02/16/19 02:22 Labs: Laboratory Last Values WBC 10.9 K/mm3 (4.5-11.0) 02/15/19 13:34 RBC 4.15 M/mm3 (3.65-5.03) 02/15/19 13:34 Hgb 12.6 gm/dl (10.1-14.3) 02/15/19 13:34 Hct 38.9 % (30.3-42.9) 02/15/19 13:34 MCV 94 fl (79-97) 02/15/19 13:34 MCH 30 pg (28-32) 02/15/19 13:34 MCHC 32 % (30-34) 02/15/19 13:34 RDW 15.1 % (13.2-15.2) 02/15/19 13:34 Plt Count 350 K/mm3 (140-440) 02/15/19 13:34 254.95 ng/mlDDU (0-234) H 02/15/19 13:34 Sodium 140 mmol/L (137-145) 02/16/19 02:22 Potassium 4.2 mmol/L (3.6-5.0) 02/16/19 02:22 Chloride 101.8 mmol/L (98-107) 02/16/19 02:22 Carbon Dioxide 29 mmol/L (22-30) 02/16/19 02:22 13 mmol/L 02/16/19 02:22 BUN 19 mg/dL (7-17) H 02/16/19 02:22 0.7 mg/dL (0.7-1.2) 02/16/19 02:22 Estimated GFR > 60 ml/min 02/16/19 02:22 27 % 02/16/19 02:22 Glucose 181 mg/dL (65-100) H 02/16/19 02:22 POC Glucose 107 (70-105) H 02/16/19 07:20 6.5 % (4-6) H 02/15/19 20:32 Calcium 8.8 mg/dL (8.4-10.2) 02/16/19 02:22 Magnesium 1.90 mg/dL (1.7-2.3) 02/15/19 13:34 < 0.20 mg/dL (0.1-1.2) 02/16/19 02:22 AST 10 units/L (5-40) 02/16/19 02:22 ALT 18 units/L (7-56) 02/16/19 02:22 85 units/L (35-129) 02/16/19 02:22 162 units/L (30-135) H 02/15/19 13:34 < 0.010 ng/mL (0.00-0.029) 02/16/19 02:22 NT-Pro-B Natriuret Pep 1883 pg/mL (0-900) H 02/15/19 13:34 6.7 g/dL (6.3-8.2) 02/16/19 02:22 3.2 g/dL (3.9-5) L 02/16/19 02:22 0.9 % 02/16/19 02:22 Straw (Yellow) 02/15/19 14:45 Hazy (Clear) 02/15/19 14:45 6.0 (5.0-7.0) 02/15/19 14:45 Ur Specific [place] 1.009 (1.003-1.030) 02/15/19 14:45 30 mg/dl mg/dL (Negative) 02/15/19 14:45 Neg mg/dL (Negative) 02/15/19 14:45 Neg mg/dL (Negative) 02/15/19 14:45 Mod (Negative) 02/15/19 14:45 Neg (Negative) 02/15/19 14:45 Neg (Negative) 02/15/19 14:45 < 2.0 mg/dL (<2.0) 02/15/19 14:45 Ur Leukocyte Esterase Neg (Negative) 02/15/19 14:45 2.0 /HPF (0.0-6.0) 02/15/19 14:45 2.0 /HPF (0.0-6.0) 02/15/19 14:45 U Epithel Cells (Auto) 7.0 /HPF (0-13.0) 02/15/19 14:45 1+ /HPF (Negative) 02/15/19 14:45 Few /HPF 02/15/19 14:45 Active Medications - Current Medications Current Medications: Generic Name Dose Route Start Last Admin Trade Name Freq PRN Reason Stop Dose Admin Acetaminophen 650 mg 02/15/19 20:24 Tylenol PO Q4H PRN Pain MILD(1-3)/Fever >100.5/BETANCOURT Aripiprazole 15 mg 02/15/19 21:00 02/16/19 11:05 Abilify PO 15 mg DAILY [facility] Administration Carbamazepine 200 mg 02/15/19 22:00 02/16/19 11:05 Tegretol PO 200 mg BID REMA Administration Carvedilol 12.5 mg 02/15/19 22:00 02/16/19 11:06 Coreg PO 12.5 mg BID ERMA Administration Enoxaparin Sodium 40 mg 02/15/19 21:00 02/15/19 22:58 Lovenox SUB-Q 40 mg QDAY@2200 [facility] Administration Famotidine 20 mg 02/15/19 22:00 02/16/19 11:06 Pepcid PO 20 mg BID [facility] Administration Furosemide 40 mg 02/15/19 21:00 02/16/19 11:01 Lasix IV 40 mg QDAY [facility] Administration Hydralazine HCl 10 mg 02/16/19 04:45 Apresoline IV Q4HR PRN Blood Pressure Hydromorphone HCl 0.5 mg 02/15/19 20:24 Dilaudid IV Q3H PRN Pain , Severe (7-10) Ibuprofen 600 mg 02/15/19 20:24 Ibuprofen PO Q6H PRN Pain, Mild (1-3) Metformin HCl 500 mg 02/15/19 22:00 02/16/19 11:05 Glucophage PO 500 mg BIDDIAB [facility] Administration Nitroglycerin 0.4 mg 02/15/19 14:55 Nitrostat SL .Q5MIN PRN Chest Pain Ondansetron HCl 4 mg 02/15/19 20:24 Zofran IV Q8H PRN Nausea And Vomiting Potassium Chloride 20 meq 02/15/19 21:00 02/16/19 11:05 K-Dur PO 20 meq QDAY [facility] Administration Sodium Chloride 10 ml 02/15/19 22:00 02/16/19 11:06 Sodium Chloride Flush Syringe 10 Ml IV 10 ml BID [facility] Administration Sodium Chloride 10 ml 02/15/19 20:24 Sodium Chloride Flush Syringe 10 Ml IV PRN PRN LINE FLUSH Valsartan 160 mg 02/15/19 22:00 02/16/19 11:05 Diovan PO 160 mg BID [facility] Administration
--- NOTE | 2019-02-16 15:05 | Cat Scan Report ---
CT angio chest INDICATION / CLINICAL INFORMATION: Chest pain and elevated d-dimer. TECHNIQUE: Axial CT images were obtained after injection of 100 cc Isovue 350 IV contrast using CTA protocol. 3 plane MIP / 3D reconstructions were produced. All CT scans at this location are performed using CT do se reduction for ALARA by means of automated exposure control. COMPARISON: None available. FINDINGS: There is good opacification of the pulmonary arterial system bilaterally without intraluminal filling defect to suggest acute PTE. The thoracic aorta is normal in caliber without dissection. There is mi nimal coronary artery calcification. The tracheobronchial tree is normal. The lung parenchyma is clear. There is no evidence of adenopathy or effusion. There is generalized enlargement of the thyroid gland which extends into the substernal region. There is a 3.8 cm low-density nodule in the right adrenal region which measures -6 Hounsfield units charac teristic of a benign adenoma. There is also a 1.4 cm low-density lesion in the left adrenal gland inder suring 1 Hounsfield unit also consistent with an adrenal adenoma. There is mild spondylosis. There ar e degenerative changes involving the manubriosternal joint. IMPRESSION: 1. No evidence of acute PTE. 2. Goiter. 3. Bilateral low density adrenal nodules are characteristic of benign adenomas. Signer Name: Donte Aguilar MD Signed: 02/16/2019 3:01 PM Workstation Name: [id number]
--- NOTE | 2019-02-16 17:14 | Discharge Summary ---
Providers - Providers Date of Admission: 02/15/19 20:24 Date of discharge: 02/16/19 Attending physician: JOEL VELASQUEZ 02/15/19 20:24 Consult to Physician [CONS] Routine Comment: Consulting Provider: JOEL DUVAL Physician Instructions: Reason For Exam: CHF Primary care physician: [facility] Hospitalization Condition: Fair Hospital course: Patient is 58 yo with hypertension, diabetes presented with chest pain. She was seen and evaluated in ED. Was given Aspirin and admitted to rule out acute coronary syndrome. She had hypertensive urgency with BP 208/107. She was given Hydralazine iv and admitted. Stress test done following day was negative. She was then discharged home. Chest pain determined to be non cardiac , due to GERD. She was discharged on Amoldipine for hypertension in addition to other medications. Disposition: - TO HOME OR SELFCARE - Discharge Diagnoses (1) GERD (gastroesophageal reflux disease) Status: Acute (2) Acute chest pain Status: Acute (3) HTN (hypertension) Status: Chronic Qualifiers: Hypertension type: essential hypertension Qualified Code(s): I10 - Essential (primary) hypertension (4) Hypertensive urgency Status: Acute (5) Diabetes mellitus type 2 in obese Status: Chronic Core Measure Documentation - Palliative Care Palliative Care/ Comfort Measures: Not Applicable - Core Measures Any of the following diagnoses?: none Exam - Constitutional Vitals: Temp Pulse Resp BP Pulse Ox 98.5 F 84 20 155/91 98 02/16/19 07:18 02/16/19 12:00 02/16/19 08:58 02/16/19 11:06 02/16/19 10:00 Plan Activity: advance as tolerated Diet: low fat, low cholesterol, low salt Additional Instructions: 1.Follow up with PCP in 1 week. 2.Follow up with Dr. Stuart, Pulmonology in 1 week to evaluate for snoring to rule out sleep apnea. Follow up with: AJAY CASTAÑEDA MD [Primary Care Provider] - 3-5 Days Prescriptions: amLODIPine [Norvasc] 5 mg PO DAILY #30 tab Famotidine [Pepcid] 20 mg PO BID #30 tablet Albuterol Sulfate [Proair Respiclick] 2 hour IH Q6H PRN #1 pump PRN Reason: Shortness Of Breath
[2019-02-16] MEDS ORDERED: PROVENTIL IH PRN (17:34)
--- NOTE | 2019-02-22 00:40 | Treadmill Report ---
THALLIUM STRESS TEST LEFT VENTRICLE: Left ventricular chamber size is within normal spread. Perfusion study demonstrates evidence of motion artifact, but fairly homogeneous uptake of the tracer in all segments, no significant defects identified. Gated analysis suggests mild left ventricular systolic dysfunction, ejection fraction calculated at 45%. CONCLUSION: No perfusion defects identified, negative myocardial perfusion scan. Recommend clinical correlation and echocardiographic reassessment of left ventricular systolic function. [facility]# [id number] CA/NTS
== END 2019-02-16 17:50 | disposition home or self-care (01) | DRG 292 ==
LOC: ED 12:15 → 4A 20:24
PROVIDERS: ADMIT Internal Medicine; ATTEND Internal Medicine
DX: I11.0 Hypertensive heart disease with heart failure (principal); I16.1 Hypertensive emergency; Z68.42 Body mass index [BMI] 45.0-49.9, adult; R07.9 Chest pain, unspecified; E66.01 Morbid (severe) obesity due to excess calories; I50.813 Acute on chronic right heart failure; G47.33 Obstructive sleep apnea (adult) (pediatric); G43.909 Migraine, unspecified, not intractable, without status migrainosus; F17.210 Nicotine dependence, cigarettes, uncomplicated; F25.0 Schizoaffective disorder, bipolar type; E11.9 Type 2 diabetes mellitus without complications; Z79.84 Long term (current) use of oral hypoglycemic drugs; Z91.19 Patient's noncompliance with other medical treatment and regimen; Z82.49 Family history of ischemic heart disease and other diseases of the circulatory system; Z71.6 Tobacco abuse counseling
CPT/HCPCS: 36415; 71046; 71275; 74176; 80048; 80053; 81001; 82550; 82962; 83036; 83735; 83880; 84484; 85027; 85379; 87086; 93005; 93010; 93017; 93306; 96374; 96375; 96376; 99406; G0378; J0360; J1650; J1940; J2785; Q9967

== ENCOUNTER 2019-02-21 12:59 | Emergency (ER) | payer MEDICARE ==
[2019-02-21 13:08] VITALS: BP 185/90
--- NOTE | 2019-02-21 13:09 | Event Note ---
ED Screening Note ED Screening Note: pt presents with BLE that began two days ago she states she has not had before she states she "thinks she was diagnosed with CHF before but states she is not on medication for it" PMHx DM, HTN, schizophrenia, bipolar, sleep apnea allergy: haldol, coconut, and scallops +tobacco non drinker no drug use This initial assessment/diagnostic orders/clinical plan/treatment(s) is/are subject to change based on patients health status, clinical progression and re- assessment by fellow clinical providers in the ED. Further treatment and workup at subsequent clinical providers discretion. Patient/guardian urged not to elope from the ED as their condition may be serious if not clinically assessed and m anaged. Initial orders include: labs
[2019-02-21] MEDS ORDERED: ATROVENT IH ONE (13:53)
[2019-02-21] MEDS ORDERED: PROVENTIL IH ONE (13:53)
[2019-02-21 13:54] LABS: Basophils # (Auto) 0.1 K/mm3 (0.0-0.1); Basophils % (Auto) 0.6 % (0.0-1.8); Eosinophils # (Auto) 0.1 K/mm3 (0.0-0.4); Hematocrit 38.7 % (30.3-42.9); Hemoglobin 12.8 gm/dl (10.1-14.3); Lymphocytes # (Auto) 2.7 K/mm3 (1.2-5.4); Lymphocytes % (Auto) 24.4 % (13.4-35.0); Mean Corpuscular HGB Conc 33 % (30-34); Mean Corpuscular Volume 93 fl (79-97); Monocytes # (Auto) 0.6 K/mm3 (0.0-0.8); Monocytes % (Auto) 5.4 % (0.0-7.3); Platelet Count 343 K/mm3 (140-440); Red Blood Count 4.17 M/mm3 (3.65-5.03); Red Cell Distribution Width 15.8 % (13.2-15.2)
[2019-02-21 14:18] LABS: Alanine Aminotransferase 24 units/L (7-56); Albumin 3.3 g/dL (3.9-5); BUN/Creatinine Ratio 19; Blood Urea Nitrogen 13 mg/dL (7-17); Calcium 8.5 mg/dL (8.4-10.2); Hemolysis Index 5
--- NOTE | 2019-02-21 15:32 | Emergency Department Report ---
ED General Adult HPI - General Chief complaint: Extremity Injury, Lower Stated complaint: LEGS PAIN Time Seen by Provider: 02/21/19 13:06 Source: patient Mode of arrival: Ambulatory Limitations: No Limitations - History of Present Illness Initial comments: The patient presents to the emergency department with a chief complaint of swelling of her ankles. Patient states she noticed the swelling over the last week. Patient has had swelling in the past. Patient has chest pain, shortness breath, or abdominal pain. -: Gradual Severity scale (0 -10): 0 Improves with: none Worsens with: none Associated Symptoms: denies other symptoms Treatments Prior to Arrival: none - Related Data Home Medications Medication Instructions Recorded Confirmed Last Taken metFORMIN [Glucophage] 500 mg PO BID 02/18/15 02/15/19 07/03/15 ARIPiprazole [Abilify TAB] 15 mg PO DAILY 02/15/19 02/15/19 Unknown Propranolol [Inderal] 10 mg PO TID 02/15/19 02/15/19 Unknown Valsartan [Diovan] 160 mg PO BID 02/15/19 02/15/19 Unknown carBAMazepine [Carbamazepine] 200 mg PO BID 02/15/19 02/15/19 Unknown Previous Rx's Medication Instructions Recorded Last Taken Type Albuterol Sulfate [Proair 2 hour IH Q6H PRN #1 pump 02/16/19 Unknown Rx Respiclick] Famotidine [Pepcid] 20 mg PO BID #30 tablet 02/16/19 Unknown Rx amLODIPine [Norvasc] 5 mg PO DAILY #30 tab 02/16/19 Unknown Rx Allergies Allergy/AdvReac Type Severity Reaction Status Date / Time coconut Allergy Unknown Verified 02/21/19 13:09 haloperidol [From Haldol] Allergy Unknown Verified 02/21/19 13:09 scallops Allergy Unknown Verified 02/21/19 13:09 ED Review of Systems ROS: Stated complaint: LEGS PAIN Other details as noted in HPI Comment: All other systems reviewed and negative Constitutional: denies: chills, fever Eyes: denies: eye pain, eye discharge, vision change ENT: denies: ear pain, throat pain Respiratory: denies: cough, shortness of breath, wheezing Cardiovascular: denies: chest pain, palpitations Endocrine: no symptoms reported Gastrointestinal: denies: abdominal pain, nausea, diarrhea Genitourinary: denies: urgency, dysuria, discharge Musculoskeletal: denies: back pain, joint swelling, arthralgia Skin: denies: rash, lesions Neurological: denies: headache, weakness, paresthesias Psychiatric: denies: anxiety, depression Hematological/Lymphatic: denies: easy bleeding, easy bruising ED Past Medical Hx - Past Medical History Previous Medical History?: Yes Hx Hypertension: Yes Hx Congestive Heart Failure: No Hx Diabetes: Yes (type 2) Hx Headaches / Migraines: Yes Hx Psychiatric Treatment: Yes (schizophrenia, bipolar) Hx Asthma: No Hx COPD: No Additional medical history: medication non-compliance - Surgical History Past Surgical History?: Yes Additional Surgical History: right lumpectomy - Social History Smoking Status: Current Every Day Smoker - Medications Home Medications: Home Medications Medication Instructions Recorded Confirmed Last Taken Type metFORMIN [Glucophage] 500 mg PO BID 02/18/15 02/15/19 07/03/15 History ARIPiprazole [Abilify TAB] 15 mg PO DAILY 02/15/19 02/15/19 Unknown History Propranolol [Inderal] 10 mg PO TID 02/15/19 02/15/19 Unknown History Valsartan [Diovan] 160 mg PO BID 02/15/19 02/15/19 Unknown History carBAMazepine [Carbamazepine] 200 mg PO BID 02/15/19 02/15/19 Unknown History Albuterol Sulfate [Proair 2 hour IH Q6H PRN #1 pump 02/16/19 Unknown Rx Respiclick] Famotidine [Pepcid] 20 mg PO BID #30 tablet 02/16/19 Unknown Rx amLODIPine [Norvasc] 5 mg PO DAILY #30 tab 02/16/19 Unknown Rx ED Physical Exam - General Limitations: No Limitations General appearance: alert, in no apparent distress - Head Head exam: Present: atraumatic, normocephalic - Eye Eye exam: Present: normal appearance - ENT ENT exam: Present: mucous membranes moist - Neck Neck exam: Present: normal inspection - Respiratory Respiratory exam: Present: normal lung sounds bilaterally. Absent: respiratory distress - Cardiovascular Cardiovascular Exam: Present: regular rate, normal rhythm. Absent: systolic murmur, diastolic murmur, rubs, gallop - GI/Abdominal GI/Abdominal exam: Present: soft, normal bowel sounds - Extremities Exam Extremities exam: Present: normal inspection, pedal edema, other (mild pedal edema bilaterally) - Back Exam Back exam: Present: normal inspection - Neurological Exam Neurological exam: Present: alert, oriented X3 - Psychiatric Psychiatric exam: Present: normal affect, normal mood - Skin Skin exam: Present: warm, dry, intact, normal color. Absent: rash ED Course Vital Signs 02/21/19 13:07 Temperature 98.5 F Pulse Rate 94 H Respiratory 16 Rate Blood Pressure 185/90 [Right] O2 Sat by Pulse 98 Oximetry ED Medical Decision Making - Lab Data Result diagrams: 02/21/19 13:37 02/21/19 13:37 Lab Results 02/21/19 02/21/19 Range/Units 13:37 13:37 WBC 11.0 (4.5-11.0) K/mm3 RBC 4.17 (3.65-5.03) M/mm3 Hgb 12.8 (10.1-14.3) gm/dl Hct 38.7 (30.3-42.9) % MCV 93 (79-97) fl MCH 31 (28-32) pg MCHC 33 (30-34) % RDW 15.8 H (13.2-15.2) % Plt Count 343 (140-440) K/mm3 Lymph % (Auto) 24.4 (13.4-35.0) % [place] % (Auto) 5.4 (0.0-7.3) % Eos % (Auto) 1.0 (0.0-4.3) % Baso % (Auto) 0.6 (0.0-1.8) % Lymph # 2.7 (1.2-5.4) K/mm3 [place] # 0.6 (0.0-0.8) K/mm3 Eos # 0.1 (0.0-0.4) K/mm3 Baso # 0.1 (0.0-0.1) K/mm3 Seg Neutrophils % 68.6 (40.0-70.0) % Seg Neutrophils # 7.5 (1.8-7.7) K/mm3 Sodium 142 (137-145) mmol/L Potassium 3.7 (3.6-5.0) mmol/L Chloride 100.3 (98-107) mmol/L Carbon Dioxide 31 H (22-30) mmol/L Anion Gap 14 mmol/L BUN 13 (7-17) mg/dL Creatinine 0.7 (0.7-1.2) mg/dL Estimated GFR > 60 ml/min BUN/Creatinine Ratio 19 % Glucose 200 H (65-100) mg/dL Calcium 8.5 (8.4-10.2) mg/dL Total Bilirubin < 0.20 (0.1-1.2) mg/dL AST 13 (5-40) units/L ALT 24 (7-56) units/L Alkaline Phosphatase 97 (35-129) units/L NT-Pro-B Natriuret Pep 430.5 (0-900) pg/mL Total Protein 6.7 (6.3-8.2) g/dL Albumin 3.3 L (3.9-5) g/dL Albumin/Globulin Ratio 1.0 % - Medical Decision Making Discussed results with patient Patient instructed to keep her legs elevated and to wear compression stockings Critical care attestation.: If time is entered above; I have spent that time in minutes in the direct care of this critically ill patient, excluding procedure time. ED Disposition Clinical Impression: Peripheral edema Disposition: TO HOME OR SELFCARE Is pt being admited?: No Does the pt Need Aspirin: No Condition: Stable Instructions: Leg Edema (ED) Additional Instructions: return if worse Referrals: SAMUEL POLO MD [Primary Care Provider] - 3-5 Days [facility] [Provider Group] - 3-5 Days [facility] [Provider Group] - 3-5 Days Time of Disposition: 15:31
== END 2019-02-21 15:50 | disposition home or self-care (01) ==
LOC: ED 12:59
DX: R60.9 Edema, unspecified (principal); I10 Essential (primary) hypertension; E11.9 Type 2 diabetes mellitus without complications; G43.909 Migraine, unspecified, not intractable, without status migrainosus; F31.9 Bipolar disorder, unspecified; F20.9 Schizophrenia, unspecified; F17.200 Nicotine dependence, unspecified, uncomplicated
CPT/HCPCS: 36415; 80053; 83880; 85025

== ENCOUNTER 2020-03-12 13:58 | Emergency (ER) | payer MEDICARE ==
[2020-03-12 15:11] VITALS: BP 179/112
--- NOTE | 2020-03-12 17:22 | Emergency Department Report ---
Chief Complaint: Dental/Oral Stated Complaint: TOOTH ABCESS/SWELLING PAIN Time Seen by Provider: 03/12/20 16:10 - HPI History of Present Illness: 59-year-old female presents the ED complaining of right-sided dental pain for the past week. Patient states she has had pain think she has an infection. Patient states she has a dental appointment next week with the dentist. Patient denies any trauma, injury. - ROS Review of Systems: As noted in HPI - Exam Vital Signs: Vital Signs 03/12/20 15:10 Temperature 97.7 F Pulse Rate 97 H Respiratory 18 Rate Blood Pressure 179/112 O2 Sat by Pulse 98 Oximetry Physical Exam: GENERAL: Alert and oriented x3, no apparent distress, Normal Gait, atraumatic. HEAD: Head is normocephalic and a-traumatic. MOUTH:Mouth is well hydrated and without lesions. Tonsils nonerythematous or swollen, Uvula midline, Tongue not elevated. Mucous membranes are moist. Posterior pharynx clear, no exudate or lesions. Patent airways. No gingival enlargement, no bleeding no facial swelling SKIN: Warm and dry, No lesions, No ulceration or induration present. MSE screening note: Focused history and physical exam performed. Due to findings the following was ordered: ED Medical Decision Making - Medical Decision Making 59-year-old female who presented to the ED for dental pain wanting narcotic pain medication. I discussed with patient to keep her appointment with her dentist and follow-up with a dentist. Patient stating that she needed some oxycodone for the pain. I discussed with patient that we do not give narcotics for dental pain and she would need to follow-up with the dentist. Patient got mad and walked out ED Disposition for MSE Clinical Impression: Pain due to dental caries Disposition: Z-07 MED SCREENING EXAM-LEFT Is pt being admited?: No Does the pt Need Aspirin: No Condition: Stable Instructions: Toothache (ED) Referrals: PRIMARY CARE, [Primary Care Provider] - 3-5 Days [facility] [Outside] - 3-5 Days
== END 2020-03-12 16:52 | disposition left against medical advice (07) ==
LOC: ED 13:58
DX: K08.89 Other specified disorders of teeth and supporting structures (principal); Z53.21 Procedure and treatment not carried out due to patient leaving prior to being seen by health care provider